=== PATIENT | female | born 1955 | race Caucasian/White ===

== ENCOUNTER 2018-11-16 13:38 | Emergency (ER) | payer MEDICARE ==
[2018-11-16 14:02] VITALS: BP 108/69
--- NOTE | 2018-11-16 14:16 | UC ---
UC General HPI - HPI Summary HPI Summary: pt reports a 10 day hx of watery diarrhea with some mucous. about 3 bouts daily. notes abdominal pain which she describes as "cramping" before the diarrhea. no fever, n/v. No travel hx, well water consumption, IBD, recent antibiotic use or raw seafood consumption. No blood in stool. Pt took Imodium without relief. Last colonoscopy was 5 years ago and no diverticular disease. No change in appetite. Today, has some frequency and burning with urination. Pt has a PCP f/u tomorrow. - History of Current Complaint Chief Complaint: UCGI Stated Complaint: DIARRHEA,STOMACH PAIN,PAINFUL URINATION Time Seen by Provider: 11/16/18 14:08 Hx Obtained From: Patient Pain Intensity: 5 - Allergy/Home Medications Allergies/Adverse Reactions: Allergies Allergy/AdvReac Type Severity Reaction Status Date / Time No Known Allergies Allergy Verified 11/16/18 14:02 Home Medications: Home Medications Atorvastatin* [Lipitor*] 10 mg PO DAILY 11/16/18 [History Confirmed 11/16/18] Levothyroxine TAB* [Synthroid TAB*] 50 mcg PO DAILY 11/16/18 [History Confirmed 11/16/18] Loperamide CAP* [Imodium CAP*] 2 mg PO Q4H PRN 11/16/18 [History Confirmed 11/16] PMH/Surg Hx/FS Hx/Imm Hx Endocrine History: Thyroid Disease, Dyslipidemia - Surgical History Surgical History: None - Family History Known Family History: Positive: Other - diverticular disease - Social History Alcohol Use: Occasionally Substance Use Type: None Smoking Status (MU): Never Smoked Tobacco Review of Systems All Other Systems Reviewed And Are Negative: Yes Gastrointestinal: Positive: Abdominal Pain - "cramping", Diarrhea. Negative: Vomiting, Nausea Genitourinary: Positive: Dysuria, Urgency Is Patient Immunocompromised?: No Physical Exam Triage Information Reviewed: Yes Appearance: Well-Appearing Vital Signs: Initial Vital Signs Temp 98.9 F 11/16/18 13:55 Pulse 69 11/16/18 13:55 Resp 18 11/16/18 13:55 BP 108/69 11/16/18 13:55 Pulse Ox 99 11/16/18 13:55 Vital Signs Reviewed: Yes Eyes: Positive: Conjunctiva Clear ENT: Positive: Pharynx normal. Negative: Nasal congestion Neck: Positive: Supple, Nontender Respiratory: Positive: Lungs clear, Normal breath sounds Cardiovascular: Positive: RRR, No Murmur Abdomen Description: Positive: Other: - Flat. Hyperactive BS. Soft. Tender LLQ but no mass, HSM, CVA tenderness and no guarding or rebound tenderness. no pulsatile mass. Musculoskeletal: Positive: ROM Intact Neurological: Positive: Alert Psychological: Positive: Age Appropriate Behavior Skin Exam: Normal Diagnostics - Laboratory Lab Results: u/a + for protein, ketones, blood, leukocytes, nitrites with culture pending. - Radiology No standard instances Radiology Interpretation Completed By: Radiologist - IMPRESSION: Evaluation is limited without IV or oral contrast. 1. Proctosigmoiditis is suspected on the basis of mild bowel wall thickening along the distal sigmoid and rectum with pericolonic fat stranding. No pneumoperitoneum or pneumatosis is identified. After the patient's symptoms resolve, repeat imaging is recommended to document resolution of the imaging findings. 2. Small bowel ileus. Course/Dx - Course Course Of Treatment: pt hx and PE d/w Dr bentley. since pt is non toxic, he suggests a non contrast CT here. options of non contrast CT and ER transfer for CT with contrast/additional workup d/w pt. pt advised may still need additional workup(including another CT ) if not improving or if worse despite a CT here. Pt would like the non contrast CT here. ct report d/w Dr Bentley. he suggests tx with cipro and flagyl. I also spoke to Dr De Jesus, the GI who performed pt's colonoscopy. I advised of hx, PE and read him the CT impression. He also said to tx with cipro, flagyl and that she may f/ u with Dr harrington tomorrow as scheduled. - Differential Dx - Multi-Symptom Differential Diagnoses: Other - non toxic. no acute abdomen or fever. good oral intake thus out pt appropriate for out pt tx. - Diagnoses Provider Diagnosis: Proctosigmoiditis, UTI (urinary tract infection) Discharge - Sign-Out/Discharge Documenting (check all that apply): Patient Departure All imaging exams completed and their final reports reviewed: Yes - Discharge Plan Condition: Stable Disposition: HOME Prescriptions: Ciprofloxacin TAB* [Cipro 500 MG TAB*] 500 mg PO BID 10 Days #20 tab metroNIDAZOLE [Flagyl 500 MG TAB] 500 mg PO TID 10 Days #30 tab Patient Education Materials: Proctitis (ED), Urinary Tract Infection in Women ( [place]) Referrals: Candie Harrington MD [Medical Doctor] - Additional Instructions: FOLLOW UP WITH DR HARRINGTON SCHEDULED FOR TOMORROW. STOP THE IMODIUM. AVOID ALL ALCOHOL WHILE ON THE FLAGYL. GO TO THE ER FOR ANY CHANGE OR WORSENING. - Billing Disposition and Condition Condition: STABLE Disposition: Home
== END 2018-11-16 16:27 | disposition home or self-care (01) ==
LOC: UCCORT 13:38
DX: K63.89 Other specified diseases of intestine (principal); N39.0 Urinary tract infection, site not specified; E78.5 Hyperlipidemia, unspecified; E07.9 Disorder of thyroid, unspecified
CPT/HCPCS: 74176; 81003; 87077; 87086; 87186; 99202; G0463